=== PATIENT | male | born 1960 | race Caucasian/White ===

== ENCOUNTER → 2017-07-05 | Outpatient (CLI) | payer BC ==
--- NOTE | 2017-07-05 08:50 | MR ---
EXAMINATION TYPE: MR iac wo/w con DATE OF EXAM: 07/05/2017 COMPARISON: NONE HISTORY: Left-sided Acoustic nerve / Tinnitus / left-sided hearing loss per order. Blunting sensatio n left ear per patient. TECHNIQUE: Multiplanar, multisequence images of the brain and brainstem is performed without and with IV contras t, utilizing 12.5 mL intravenous Gadavist . Acoustic nerve disorder protocol. FINDINGS: Diffusion weighted images demonstrate no evidence of a recent infarct or other diffusion ab normality. There is no extra-axial fluid collection or significant white matter signal abnormality. Less than 5 scattered T2 hyperintense lesions are felt present. The ventricular system and cisternal spaces are normal in size and appearance. The brain volume is age appropriate. Midline structures demonstrate normal morphology. The craniocervical junction appears within normal limits. Post contrast images demonstrate no abnormal enhancement. There is moderate mucosal thickeni ng involving ethmoid sinuses bilaterally. There is mild to moderate mucosal thickening involving infe rior right maxillary sinus. There is moderate mucosal thickening involving right frontal sinus. Globe s are intact bilaterally. No suspicious fluid signal is seen at level of mastoid air cells bilaterally. Vestibulocochlear compl exes are symmetric and felt within normal limits. No suspicious enhancing cerebellopontine angle mass is identified bilaterally. IMPRESSION: No significant finding is seen to account for patient's symptoms. Chronic paranasal sinus disease incidentally noted.
== END ==
LOC: RADMRIMAIN 07:51
PROVIDERS: ATTEND Otolaryngology
DX: H93.3X9 Disorders of unspecified acoustic nerve (principal); H93.19 Tinnitus, unspecified ear; H91.90 Unspecified hearing loss, unspecified ear; J32.9 Chronic sinusitis, unspecified
CPT/HCPCS: 70553; A9581

== ENCOUNTER 2018-11-01 17:52 | Inpatient (IN) | payer BC ==
[2018-11-01] MEDS ORDERED: SODIUM CHLORIDE 0.9% 500 ML 500 ML IV STA (18:19)
--- NOTE | 2018-11-01 18:38 | ED ---
General Adult HPI - General Chief complaint: Neuro Symptoms/Deficit Stated complaint: Eye droop Time Seen by Provider: 11/01/18 18:00 Source: patient, RN notes reviewed Mode of arrival: ambulatory Limitations: no limitations - History of Present Illness Initial comments: This is a 58-year-old male who presents emergency Department with at least a month worth of proptosis in the left eye patient states prior to the proptosis he was having intermittent double vision over the last month as well. Patient states he went to see his primary medical care doctor and he ordered a MRI and go follow-up the service mechanic. [employer] wanted to come emergency department and be worked up. Patient has no headache patient has no other neurologic deficits such as facial droop or slurred speech. Patient denies any numbness weakness. Patient denies any recent fever or chills. Patient denies any chest pain difficulty breathing shortest breath per patient denies any abdominal pain patient denies nausea vomiting diarrhea. - Related Data Home Medications Medication Instructions Recorded Confirmed Benazepril HCl 10 mg PO DAILY 11/01/18 11/01/18 Cholecalciferol [Vitamin D3 (25 1,000 unit PO DAILY 11/01/18 11/01/18 Mcg = 1000 Iu)] amLODIPine BESYLATE [Norvasc] 10 mg PO DAILY 11/01/18 11/01/18 Allergies Allergy/AdvReac Type Severity Reaction Status Date / Time No Known Allergies Allergy Verified 11/01/18 18:10 Review of Systems ROS Statement: Those systems with pertinent positive or pertinent negative responses have been documented in the HPI. ROS Other: All systems not noted in ROS Statement are negative. Past Medical History Past Medical History: Hypertension History of Any Multi-Drug Resistant Organisms: None Reported Additional Past Surgical History / Comment(s): basal cwll removal, sinus Past Psychological History: No Psychological Hx Reported Smoking Status: Never smoker Past Alcohol Use History: None Reported Past Drug Use History: None Reported General Exam - General Exam Comments Initial Comments: GENERAL: Patient is well-developed and well-nourished. Patient is nontoxic and well- hydrated and is in no acute distress. ENT: Neck is soft and supple. No significant lymphadenopathy is noted. Oropharynx is clear. Moist mucous membranes. Neck has full range of motion without eliciting any pain. EYES: The sclera were anicteric and conjunctiva were pink and moist. Chest proptosis of the left eye. Patient does seem to have a little delay in extraocular motion in particular looking medially in the left eye compared to the right. PULMONARY: Unlabored respirations. Good breath sounds bilaterally. No audible rales rhonchi or wheezing was noted. CARDIOVASCULAR: There is a regular rate and rhythm without any murmurs gallops or rubs. ABDOMEN: Soft and nontender with normal bowel sounds. SKIN: Skin is clear with no lesions or rashes and otherwise unremarkable. NEUROLOGIC: Patient is alert and oriented x3. Cranial nerves II through XII are grossly intact. Motor and sensory are also intact. Normal speech, volume and content. Symmetrical smile. MUSCULOSKELETAL: Normal extremities with adequate strength and full range of motion. No lower extremity swelling or edema. No calf tenderness. LYMPHATICS: No significant lymphadenopathy is noted PSYCHIATRIC: Normal psychiatric evaluation. Normal interpersonal interactions appears functionally intact in deals appropriately with others. No signs of depression. No signs of anxiety. Limitations: no limitations Course Vital Signs 11/01/18 11/01/18 11/01/18 17:59 18:28 19:48 Temperature 98.2 F Pulse Rate 98 93 75 Respiratory 18 18 16 Rate Blood Pressure 146/90 140/81 132/84 O2 Sat by Pulse 96 96 94 L Oximetry Medical Decision Making - Medical Decision Making EKG shows normal sinus rhythm at 97 bpm IN interval is 160 QRS is 96 QT interval 354 QTC is 449 per patient's EKG shows no ST segment elevation or depression no T-wave abnormalities noted. Patient has Q waves in leads II, III, and F aVF. Chest x-ray shows no acute abnormality. CT of the brain shows no acute abnormality. CT angiogram of the head and neck shows no acute abnormality. Patient continues to have proptosis of the left eye. I spoke with Dr. Loza and he agreed to admit the patient admitted the patient I wrote admitting orders I consult the neurology. - Lab Data Result diagrams: 11/01/18 18:43 11/01/18 18:43 Lab Results 11/01/18 11/01/18 11/01/18 Range/Units 18:43 18:43 18:43 WBC 7.4 (3.8-10.6) k/uL RBC 5.11 (4.30-5.90) m/uL Hgb 15.4 (13.0-17.5) gm/dL Hct 45.9 (39.0-53.0) % MCV 89.8 (80.0-100.0) fL MCH 30.1 (25.0-35.0) pg MCHC 33.5 (31.0-37.0) g/dL RDW 13.4 (11.5-15.5) % Plt Count 184 (150-450) k/uL Neutrophils % 75 % Lymphocytes % 16 % Monocytes % 5 % Eosinophils % 3 % Basophils % 0 % Neutrophils # 5.5 (1.3-7.7) k/uL Lymphocytes # 1.1 (1.0-4.8) k/uL Monocytes # 0.3 (0-1.0) k/uL Eosinophils # 0.2 (0-0.7) k/uL Basophils # 0.0 (0-0.2) k/uL PT 12.0 (9.0-12.0) sec INR 1.1 (<1.2) APTT 28.0 (22.0-30.0) sec Sodium 139 (137-145) mmol/L Potassium 3.9 (3.5-5.1) mmol/L Chloride 106 (98-107) mmol/L Carbon Dioxide 26 (22-30) mmol/L Anion Gap 7 mmol/L BUN 18 (9-20) mg/dL Creatinine 0.69 (0.66-1.25) mg/dL Est GFR (CKD-EPI)AfAm >90 (>60 ml/min/1.73 sqM) Est GFR (CKD-EPI)NonAf >90 (>60 ml/min/1.73 sqM) Glucose 153 H (74-99) mg/dL Calcium 9.1 (8.4-10.2) mg/dL Total Bilirubin 0.9 (0.2-1.3) mg/dL AST 24 (17-59) U/L ALT 27 (21-72) U/L Alkaline Phosphatase 64 (38-126) U/L Troponin I (0.000-0.034) ng/mL Total Protein 7.1 (6.3-8.2) g/dL Albumin 4.0 (3.5-5.0) g/dL 11/01/18 Range/Units 18:43 WBC (3.8-10.6) k/uL RBC (4.30-5.90) m/uL Hgb (13.0-17.5) gm/dL Hct (39.0-53.0) % MCV (80.0-100.0) fL MCH (25.0-35.0) pg MCHC (31.0-37.0) g/dL RDW (11.5-15.5) % Plt Count (150-450) k/uL Neutrophils % % Lymphocytes % % Monocytes % % Eosinophils % % Basophils % % Neutrophils # (1.3-7.7) k/uL Lymphocytes # (1.0-4.8) k/uL Monocytes # (0-1.0) k/uL Eosinophils # (0-0.7) k/uL Basophils # (0-0.2) k/uL PT (9.0-12.0) sec INR (<1.2) APTT (22.0-30.0) sec Sodium (137-145) mmol/L Potassium (3.5-5.1) mmol/L Chloride (98-107) mmol/L Carbon Dioxide (22-30) mmol/L Anion Gap mmol/L BUN (9-20) mg/dL Creatinine (0.66-1.25) mg/dL Est GFR (CKD-EPI)AfAm (>60 ml/min/1.73 sqM) Est GFR (CKD-EPI)NonAf (>60 ml/min/1.73 sqM) Glucose (74-99) mg/dL Calcium (8.4-10.2) mg/dL Total Bilirubin (0.2-1.3) mg/dL AST (17-59) U/L ALT (21-72) U/L Alkaline Phosphatase (38-126) U/L Troponin I <0.012 (0.000-0.034) ng/mL Total Protein (6.3-8.2) g/dL Albumin (3.5-5.0) g/dL Disposition Clinical Impression: Cerebrovascular accident Disposition: ADMITTED IP TO THIS HOSP Referrals: Gaurav Hassan MD [Primary Care Provider] - 1-2 days Time of Disposition: 20:45
[2018-11-01 18:56] LABS: Basophils % (A) 0 %; Eosinophils # (A) 0.2 k/uL (0-0.7); Eosinophils % (A) 3 %; HCT 45.9 % (39.0-53.0); HGB 15.4 gm/dL (13.0-17.5); Lymphocytes # (A) 1.1 k/uL (1.0-4.8); Lymphocytes % (A) 16 %; MCH 30.1 pg (25.0-35.0); MCHC 33.5 g/dL (31.0-37.0); MCV 89.8 fL (80.0-100.0); Mean Platelet Volume 7.2; Monocytes # (A) 0.3 k/uL (0-1.0); Monocytes % (A) 5 %; Neutrophils # (A) 5.5 k/uL (1.3-7.7); Neutrophils % (A) 75 %; Platelet Count 184 k/uL (150-450); RBC 5.11 m/uL (4.30-5.90); RDW 13.4 % (11.5-15.5); WBC 7.4 k/uL (3.8-10.6)
[2018-11-01 19:14] LABS: ALT 27 U/L (21-72); AST 24 U/L (17-59); African American GFR (CKD) >90 (>60 ml/min/1.73 sqM); Alkaline Phosphatase 64 U/L (38-126); Anion Gap 7 mmol/L; Blood Urea Nitrogen 18 mg/dL (9-20); Calcium 9.1 mg/dL (8.4-10.2); Carbon Dioxide 26 mmol/L (22-30); Chloride 106 mmol/L (98-107); Glucose 153 mg/dL (74-99); Non-African American GFR(CKD) >90 (>60 ml/min/1.73 sqM); Potassium 3.9 mmol/L (3.5-5.1); Sodium 139 mmol/L (137-145); Total Bilirubin 0.9 mg/dL (0.2-1.3); Total Protein 7.1 g/dL (6.3-8.2)
[2018-11-01 19:17] LABS: INR 1.1 (<1.2)
--- NOTE | 2018-11-01 20:01 | CT ---
EXAMINATION: CT brain wo con DATE AND TIME: 11/01/2018 7:40 PM CLINICAL INDICATION: PHH; Neuro Deficits TECHNIQUE: Standard departmental protocol.; 1134; DLP 1134 mGy-cm. COMPARISON: None. FINDINGS: The calvarium is intact. There is no intracranial hemorrhage. There is no intracranial mass or mass effect. No definite new intra-axial or extra-axial attenuation defect. The ethmoid sinuses are prominently opacified, which can correlate with a clinical diagnosis of ethmo id sinusitis. The remainder of the paranasal sinuses, middle ear cavities, and mastoid sinus air cells are clear. The orbits are unremarkable. IMPRESSION: 1. NO ACUTE PROCESS. 2. Ethmoid sinus opacification.
--- NOTE | 2018-11-01 20:24 | XR ---
EXAMINATION: XR chest 2V DATE AND TIME: 11/01/2018 7:42 PM CLINICAL INDICATION: PHH; altered mental status TECHNIQUE: Departmental protocol COMPARISON: None FINDINGS: The lungs are clear. The pleural spaces are negative. The cardiac silhouette is mildly enlarged. The remainder of the mediastinal silhouette is unremarkable. The skeletal structures and soft tissues are negative for acute findings. IMPRESSION: NO ACUTE PROCESS.
--- NOTE | 2018-11-01 20:41 | CT ---
EXAMINATION TYPE: CT angio head neck DATE OF EXAM: 11/01/2018 HISTORY: Left eye droop and vision changes. COMPARISON: CT head without contrast 11/01/2018 CT DLP: 797.8 mGycm. Automated Exposure Control for Dose Reduction was Utilized. TECHNIQUE: CTA scan of the neck is performed with IV Contrast, patient injected with 50ml mL of Isov ue 370, axial images are obtained, coronal and sagittal reformatted images are reviewed. Three-D joaquin nstructed images are created on an independent workstation and reviewed. FINDINGS: The bilateral carotid arterial systems are widely patent without significant stenoses. Ther e is mild/moderate tortuosity with scattered atherosclerotic intimal calcifications bilaterally. The bilateral vertebral arterial systems are widely patent without significant stenoses. There is mil d/moderate tortuosity with scattered atherosclerotic intimal calcifications bilaterally. Intracranial anterior and posterior arterial circulation is widely patent. The dural venous sinuses and venous structures of the neck are widely patent. There are no incidental intracranial or soft tissue neck findings. IMPRESSION: No significant abnormality is seen.
[2018-11-01 22:22] VITALS: BMI 39.0
--- NOTE | 2018-11-01 22:34 | P.CNNES ---
History of Present Illness Consult date: 11/01/18 Requesting physician: Jose Sam Reason for Consult: CVA Chief complaint: Double vision and droopy left eyelid History of Present Illness: This is a 58 RH male whose main vascular risk factor is HTN and advancing age. Over the past year, he has been having intermittent double vision. Images are at an angle up and downward. Then around a month ago, his left eyelid started to droop. He went to his PCP who was going to arrange for him to have an MRI brain w wo judy, but it has not yet been done. He went to see an glacing machine tender who stated while he could fit the patient for prisms, he should go see an copy supervisor, and he did today. He was advised to present to the ER for immed iate work-up. Denies recent head trauma (he did hit his head around a year ago that left him with a buzz inside his head, which eventually resolved spontaneously) or SAW CLE[employer]ER infection. No h/o DM, toxin exposure or sick contacts. Denies other neuro c/o such as decreased level or loss of consciousness, ph otopsias, periorbital or retrobulbar pain, headache, transient left visual loss or graying of vision, amaurosis, forehead or facial numbness or droop, vertigo, dysarthria, dysphagia, aphasia, other focal numbness/weakness not mentioned above, tremors, bowel/bladder incontinence or ataxia. Review of Systems I have performed a 14-point organ ROS with patient; pertinents are as per HPI. Past Medical History Past Medical History: Hypertension History of Any Multi-Drug Resistant Organisms: None Reported Additional Past Surgical History / Comment(s): basal cwll removal, sinus Past Psychological History: No Psychological Hx Reported Smoking Status: Never smoker Past Alcohol Use History: None Reported Past Drug Use History: None Reported Medications and Allergies Home Medications Medication Instructions Recorded Confirmed Type Benazepril HCl 10 mg PO DAILY 11/01/18 11/01/18 History Cholecalciferol [Vitamin D3 (25 1,000 unit PO DAILY 11/01/18 11/01/18 History Mcg = 1000 Iu)] amLODIPine BESYLATE [Norvasc] 10 mg PO DAILY 11/01/18 11/01/18 History Allergies Allergy/AdvReac Type Severity Reaction Status Date / Time No Known Allergies Allergy Verified 11/01/18 18:10 Physical Examination - Vital Signs Vital Signs: Vital Signs Temp Pulse Resp BP Pulse Ox 11/01/18 21:13 98.6 F 84 16 137/84 97 11/01/18 19:48 75 16 132/84 94 L 11/01/18 18:28 93 18 140/81 96 11/01/18 17:59 98.2 F 98 18 146/90 96 Intake and Output 11/01/18 11/01/18 11/01/18 06:59 14:59 22:59 Other: Weight 127.006 kg Gen NAD Pleasant and cooperative HEENT NCAT Sclera without icterus O/P clear Neck Supple No carotid bruit Cor RRR no m/r/g Lungs CTAB Abd Soft NTND +BS Ext Warm to touch No edema Neuro MS A+Ox4 Normal fluency Able to follow all commands CN PERRL VFF no APD EOMI but he has vertical diplopia on downward gaze no nystagmus or CHAVEZ No facial asymmetry except he does have left ptosis There is no fatigable ptosis on the right on sustained upward gaze x 30 seconds Masseter's symmetric Hearing intact to normal voice bilaterally Speech not dysarthric Equal elevation of palate Tongue midline Sym shrug and SCM bilaterally Motor Normal bulk/tone No pronator or leg drift No tremors Strength 5/5 sym throughout Sens Intact to LT x4 No neglect or extinction Coord No dysmetria on FTN bilaterally DTRs 2+/4 sym throughout Toes downgoing bilaterally No clonus at achilles Gait Deferred NIHSS 0 Results - Laboratory Findings CBC and BMP: 11/01/18 18:43 11/01/18 18:43 Abnormal Lab Findings: Abnormal Labs 11/01/18 18:43 Glucose 153 H - Diagnostic Findings Additional findings: CT Head wo cont 11/01/18. Ethmoid sinus opacification. Orbits are unremarkable. No ICH. Nil acute. CTA Head/Neck 11/01/18. No LVO or stenosis. No cerebral aneurysm such as pComm aneurysm. I have reviewed neuroimages myself. Assessment and Plan Assessment: Pupillary sparing left CNIII palsy Plan: -CTA did not show compressive vascular pathology such as pcomm aneurysm. A compressive etiology would typically cause pupillary involving CNIII palsy, which is not his case -Will start with MRI Brain w wo judy to r/o parenchymal structural explanation such as CVA or neoplasm -If negative, will need to look for other intrinsic etiologies of his cranial neuropathy -Send basic PN labs, i.e. TSH, hga1c, B12. May need to expand if neuroimaging unrevealing -Fasting lipids in am -May treat BP to normotensive range but avoid hypotension -DVT prophylaxis -Clinical neuroanatomy, localization, differential considerations and work-up d/w patient at length. All questions answered. Thank you for this consultation. Please call with ?. Time with Patient: Greater than 30 (Time spent in direct patient care, greater than 50% of which was spent in [id number] counseling and coordination of care: 70 minutes)
[2018-11-02 08:29] VITALS: RESP 16
--- NOTE | 2018-11-02 14:21 | XR ---
Pre-MRI orbits HISTORY: Pre-MRI 3 views of the orbits Sclerosis overlying the left frontal sinus may represent osteoma. The orbits show no radiopaque forei gn body. Paranasal sinuses otherwise appear well aerated. IMPRESSION: No radiopaque foreign body evident within the orbits.
--- NOTE | 2018-11-02 15:26 | MR ---
EXAMINATION TYPE: MR brain wo/w mraneck wo/wcon DATE OF EXAM: 11/02/2018 2:58 PM COMPARISON: NONE HISTORY: Ptosis, OS, Left pupillary sparing CNIII palsy CONTRAST: Patient received 13 mL intravenous Gadavist gadolinium contrast. Multiplanar and multispin-echo imaging of the brain was performed . Pre and post contrast enhanced i mages are obtained. The ventricles, basal cisterns and sulci overlying the cerebral convexities are mildly enlarged. There is evidence of minimal periventricular white matter ischemic demyelination. Remote deep white matter insults are also noted. No acute edema is seen on diffusion weighted imaging. There is no evidence for midline shift or mass effect. Acute intracranial hemorrhage or extra-axial collection is not evident. No enhancing lesions are seen. Chronic paranasal sinusitis. IMPRESSION: Age-related atrophic and chronic small vessel ischemic change. No acute intracranial process at this time. No enhancing lesions are seen. EXAMINATION TYPE: MR brain wo/w mraneck wo/wcon DATE OF EXAM: 11/02/2018 2:58 PM COMPARISON: NONE Contrast: 13 mL Gadavist. HISTORY: Ptosis, OS, Left pupillary sparing CNIII palsy Three-dimensional [id number] cervical carotid MRA was performed with multiple intensity projectio n images submitted and source data reviewed at the workstation. Post contrast enhanced images are ob tained. Right carotid system: There is mild plaque seen about the common carotid artery. Mild plaque is also seen at the origin and proximal aspect of the right internal carotid artery. Stenosis is estimated at less than 50%. No hemodynamically significant stenosis is appreciated. Right external carotid ar adrian right vertebral artery are patent. Left carotid system: Mild plaque involving the left common carotid artery. Minimal to mild plaque or igin left ICA. No hemodynamically significant stenosis is appreciated. External carotid artery and the left vertebral artery are patent. IMPRESSION: 1. No hemodynamically significant stenosis is appreciated at this time.
[2018-11-02 15:34] VITALS: BP 153/93; TEMP 98
[2018-11-02 15:38] LABS: Hemoglobin A1C 5.2 % (4.0-6.0)
[2018-11-02 16:18] VITALS: PULSE 73
--- NOTE | 2018-11-02 16:45 | P.PN ---
Subjective Progress Note Date: 11/02/18 Principal diagnosis: Pupillary sparing left CNIII palsy MRI Brain. MRA Neck. Left ptosis and diplopia unchanged. No other neuro c/o. Objective - Vital Signs Vital signs: Vital Signs Temp 98 F 11/02/18 15:27 Pulse 73 11/02/18 16:10 Resp 16 11/02/18 16:10 BP 153/93 11/02/18 15:27 Pulse Ox 96 11/02/18 15:27 Intake & Output 11/01/18 11/02/18 11/02/18 18:59 06:59 18:59 Intake Total 480 Output Total 600 Balance -120 Weight 127.006 kg 127.1 kg Intake: Oral 480 Output: Urine 600 Other: Voiding Method Toilet Toilet # Voids 1 - Exam Gen NAD Pleasant and cooperative MS A+Ox4 Normal speech CN Left ptosis and vertical diplopia on downgaze o/w remainder of II-XII grossly intact no nystagmus Motor Normal bulk/tone no tremors MENDOZA x4 Sens Intact to LT x4 Coord Not tested DTRs 2+/4 sym throughout Gait Deferred - Labs CBC & Chem 7: 11/01/18 18:43 11/01/18 18:43 Labs: Abnormal Lab Results - Last 24 Hours (Table) 11/01/18 11/02/18 Range/Units 18:43 06:02 Glucose 153 H (74-99) mg/dL LDL Cholesterol, Calc 131 H (0-99) mg/dL HDL Cholesterol 35 L (40-60) mg/dL TSH 3.0 hga1c 5.2 Vitamin B12 269 Assessment and Plan Assessment: Pupillary sparing left CNIII palsy Plan: -MRI results d/w patient in detail. No parenchymal or vascular explanation -Initiate labs for intrinsic etiologies of his cranial neuropathy. Will send MMA, homocysteine (given B12 <400), CK, LDH, ESR, CRP, SERGEY, RF, RPR, SPEP, AchR bining Ab, muscle specific kinase Ab -Basic PN labs (TSH, hga1c, B12) unrevealing -He will need to follow up with outpatient neurology to go over results and determine if further neuro work-up may be necessary -d/w patient in detail. All questions answered -Fine for discharge from acute neuro standpoint. Will revisit patient prn. Pl ease call with new ?. Thank you again for this consultation. Time with Patient: Less than 30 (Time spent in direct patient care, greater than 50% of which was spent in [id number] counseling and coordination of care: 25 minutes)
--- NOTE | 2018-11-02 17:33 | PN ---
PROGRESS NOTE CHIEF COMPLAINT: Ptosis of the left eye. HISTORY OF PRESENT ILLNESS: This gentleman is about the same as when he came in last night. It is interesting that when you first walk in the room, his ptosis is not noticeable. After he has been sitting up and talking for a few minutes, it returns. PHYSICAL EXAMINATION: He still has ptosis, but extraocular movements seem to be nearly concentric. Chest is clear. Cardiac exam is normal. Carotids are normal. IMPRESSION: 1. Ptosis of the left eye with diplopia. 2. Hypertension. PLAN: Await further neurologic evaluation and reports on contrast studies. MMODL / IJN: [id number] /
--- NOTE | 2018-11-02 17:39 | HP ---
HISTORY AND PHYSICAL CHIEF COMPLAINT: Double vision and ptosis. HISTORY OF PRESENT ILLNESS: This is another admission for this 58-year-old white male who has a history of hypertension. He came to the office with a several-day history of drooping of the left upper eyelid and diplopia. He denied any headaches, numbness, weakness, etc. anywhere in the head, face or neck. He had no sensory motor deficits in the upper extremities. He was noted to have a normal exam in the office. Pupils were equal and round and extraocular movements seemed to be intact. He could not elevate the left eyelid well, however. He was referred to Ophthalmology, and they suggested that he be admitted for neurology evaluation and appropriate scans. He is not diabetic. The vision of the left eye is well preserved and is normal. REVIEW OF SYSTEMS: He has had no other neurologic problems, chest pain, shortness of breath, palpitations, murmurs, rheumatic fever, dizziness, syncope, ataxia, etc. He has had no abdominal pain, nausea, vomiting, hematemesis, melena, hematochezia, colitis, diverticulosis, diverticulitis, hemorrhoids, jaundice, hepatitis, diarrhea, renal failure, dysuria, frequency, urgency, etc. Past medical history, family history, and personal and social histories are otherwise unremarkable and noncontributory. He basically is followed for hypertension. PHYSICAL EXAMINATION: Blood pressure is 135/80 with a pulse of 74, respirations of 29, and he is afebrile. In general he appeared to be overweight and in no acute distress. Skin color was normal. Skin was warm and dry. Lymph nodes were not enlarged. Head, ears, eyes, nose, mouth and throat were normal. Neck veins were not distended. Thyroid was not enlarged. Chest was clear. Cardiac exam was normal. The abdomen was soft and non-tender. The only abnormality was ptosis on the left. Pupils were equally round and gaze seemed to be conjugate. He is admitted to the hospital with the diagnosis: Unexplained diplopia and left-sided ptosis. PLAN: 1. Bed rest. 2. IV fluids. 3. Frequent monitoring of his neurologic status and vital signs. 4. Neurology consult. 5. MRA and MRI of the neck and intracranial circulation. MMODL / IJN: [id number] /
[2018-11-02 18:51] LABS: C Reactive Protein 9.8 mg/L (<10.0)
--- NOTE | 2018-11-02 20:18 | DS ---
DISCHARGE SUMMARY CHIEF COMPLAINT: Diplopia and ptosis of the left eye. HISTORY OF PRESENT ILLNESS AND PHYSICAL EXAMINATION: Details of this man's history and physical can be found in the initial workup. LABORATORY STUDIES: While he was in the hospital he had laboratory studies, details of which can be found in the laboratory section of his chart. COURSE IN THE HOSPITAL: After admission he was placed on bedrest and started on intravenous fluids and was seen by Neurology. He was evaluated for possible neoplasm, aneurysm, etc. All of his contrast studies were negative. He was seen by Neurology. The possibility of myasthenia gravis was brought up. It was felt that the patient could be discharged and his workup continued as an outpatient. He will go home on his usual activity, diet and medication and be seen in the office in a day or two. He will have a followup with Neurology. FINAL DIAGNOSES: 1. Diplopia, less. 2. Ptosis, left eye. 3. Hypertension. OPERATIONS: None. CONSULTATION: Neurology. He is improved. MMODL / IJN: [id number] /
[2018-11-03 00:31] LABS: Protein, Total 6.8 g/dL (6.2-8.2)
[2018-11-03 01:20] LABS: Rheumatoid Factor <4 IU/mL (0-13)
[2018-11-03] MEDS ORDERED: LISINOPRIL 10 MG TAB PO SCH (09:00)
[2018-11-03] MEDS ORDERED: amLODIPine 10 MG TAB PO SCH (09:00)
[2018-11-03 09:40] LABS: Albumin 3.99 g/dL (3.80-4.90); Gamma Globulin 1.09 g/dL (0.70-1.50)
[2018-11-07 09:41] LABS: Methylmalonic Acid 0.29 umol/L (<0.40)
== END 2018-11-02 18:37 | disposition home or self-care (01) | DRG 123 ==
LOC: EC 17:52 → 3SCARD 20:45
PROVIDERS: ADMIT Family Medicine; ATTEND Family Medicine
DX: H49.02 Third [oculomotor] nerve palsy, left eye (principal); H02.402 Unspecified ptosis of left eyelid; H53.2 Diplopia; I10 Essential (primary) hypertension; Z79.899 Other long term (current) drug therapy
CPT/HCPCS: 36415; 70030; 70450; 70496; 70498; 70549; 70553; 71046; 80053; 80061; 82550; 82607; 83036; 83090; 83519; 83625; 83921; 84165; 84443; 84484; 85025; 85610; 85652; 85730; 86038; 86140; 86431; 86780; 93005; 96360; 99285

== ENCOUNTER → 2018-11-18 | Outpatient (CLI) | payer BC | END | disposition home or self-care (01) | LOC: LABWHC1 15:22 | PROVIDERS: ATTEND Psychiatry & Neurology Neurology | DX: H53.2 Diplopia (principal) | CPT/HCPCS: 36415 ==

== ENCOUNTER → 2018-12-01 | Outpatient (CLI) | payer BC ==
--- NOTE | 2018-12-01 13:09 | MR ---
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 Th ree-dimensional reconstructions performed on an alternate workstation. FINDINGS: Anterior posterior circulation are patent. There is no evident aneurysm, dissection, embolu s, no vascular malformation. Inflammatory change noted incidentally within the ethmoid air cells and sphenoid sinus, frontal sinus. IMPRESSION: No abnormality of the tang[place] of [place]. Sinus disease as described.
== END | disposition home or self-care (01) ==
LOC: RADMRIMAIN 08:23
PROVIDERS: ATTEND Psychiatry & Neurology Neurology
DX: H49.02 Third [oculomotor] nerve palsy, left eye (principal)
CPT/HCPCS: 70544

== ENCOUNTER → 2018-12-08 | Outpatient (CLI) | payer BC ==
--- NOTE | 2018-12-08 09:59 | CT ---
EXAMINATION TYPE: CT chest wo/w con DATE OF EXAM: 12/08/2018 COMPARISON: None HISTORY: myasthenia gravis CT DLP: 1236.4 mGycm, Automated exposure control for dose reduction was used. CONTRAST: Performed injected with 100 mL of Isovue 300. TECHNIQUE: Axial images were obtained at 5 mm thick sections. Reconstructed images are reviewed on [employer] computer in the coronal plane. FINDINGS: Portion of the thyroid visualized is normal. No suspicious lung nodules or focal infiltrates are present. No suspicious anterior mediastinal elroy s are evident. No enlarged mediastinal or hilar adenopathy is evident. The ascending aorta diameter at the level o f the main pulmonary artery is 3.5 cm. The main pulmonary artery diameter at the bifurcation is 2.9 cm. Coronary artery calcification is noted. Limited CT sections are obtained through the upper abdomen. Abdomen is essentially unremarkable. IMPRESSIONS: 1. Normal Chest CT.
== END | disposition home or self-care (01) ==
LOC: RADCTMAIN 06:40
PROVIDERS: ATTEND Psychiatry & Neurology Neurology
DX: G70.00 Myasthenia gravis without (acute) exacerbation (principal)
CPT/HCPCS: 71270; Q9967

== ENCOUNTER → 2019-04-18 | Outpatient (CLI) | payer BC | END | disposition home or self-care (01) | LOC: LABWHC1 12:11 | PROVIDERS: ATTEND Psychiatry & Neurology Neurology | DX: G70.00 Myasthenia gravis without (acute) exacerbation (principal); Z79.899 Other long term (current) drug therapy | CPT/HCPCS: 36415; 82306 ==

== ENCOUNTER → 2019-04-28 | Outpatient (CLI) | payer BC ==
[2019-04-28 17:44] LABS: Hemoglobin A1C 5.6 % (4.0-6.0)
== END | disposition home or self-care (01) ==
LOC: LABWHC1 07:37
PROVIDERS: ATTEND Psychiatry & Neurology Neurology
DX: G62.9 Polyneuropathy, unspecified (principal); G70.00 Myasthenia gravis without (acute) exacerbation; R94.131 Abnormal electromyogram [EMG]; Z79.899 Other long term (current) drug therapy
CPT/HCPCS: 36415; 82607; 83036; 86618

== ENCOUNTER → 2020-02-15 | Outpatient (CLI) | payer BC ==
[2020-02-15 22:15] LABS: Hemoglobin A1C 5.1 % (4.0-6.0)
== END | disposition home or self-care (01) ==
LOC: LABWHC1 13:21
PROVIDERS: ATTEND Psychiatry & Neurology Neurology
DX: G70.00 Myasthenia gravis without (acute) exacerbation (principal); R26.0 Ataxic gait; Z79.899 Other long term (current) drug therapy
CPT/HCPCS: 36415; 82306; 82550; 82607; 83036

== ENCOUNTER → 2020-03-06 | Outpatient (CLI) | payer BC ==
--- NOTE | 2020-03-10 12:13 | MR ---
EXAMINATION TYPE: MR shruthiine/lspine wo/w con DATE OF EXAM: 03/06/2020 COMPARISON: CT 11/01/2018 HISTORY: Numbness in right index finger and pinky finger. Pain in right shoulder. Numbness in left le g. TECHNIQUE: Multiplanar, multisequence images of the cervical and lumbar spine is performed without and with IV c ontrast, utilizing 12.5 mL intravenous Gadavist FINDINGS: Cervical spine MRI: There is reversal of the normal cervical lordosis. Cervical vertebral bodies show preserved height. T here is loss of disc signal consistent with disc desiccation at intervertebral levels, loss of disc h eight present C4-5, C5-6, there is associated spondylosis with endplate discogenic marrow signal sanchez ge. Cervical cord shows abnormal intrinsic signal, low signal on T1, high signal on T2-weighted seque nces extending from approximately C4-5 through C6. There is an oval-shaped T1 and T2 isointense mass measuring approximately 17 mm in transverse dimension by 2.6 cm in cephalad to caudal dimension by 10 mm in AP dimension at the C6 level extending to C6-7. Dense homogenous enhancement is present followi ng contrast administration. There is mass effect on the cord from the right towards the left. Small o ssific fragment is present at the level of the dens which is an interval change, remote fracture is n ot excluded. C2-3 shows a minimal posterior disc bulge possibly contacting the anterior cervical cord. Mild left-s ided foraminal encroachment present due to some mild anterolisthesis, there is some facet arthropathy change. No evident spinal stenosis. C3-4: Posterior extension of endplate disc complex effaces the anterior thecal sac. There is foramina l encroachment due to uncovertebral joint hypertrophy and facet arthropathy left greater than right. No significant spinal stenosis. C4-5: Right-sided foraminal encroachment is extensive due to uncovertebral joint hypertrophy and face t arthropathy. Foraminal encroachment is less significant on the left. No significant spinal stenosis . C5-6: Severe spinal stenosis is present, as well as posterior extension of endplate disc complex caus ing deformity of the cervical cord. There is bilateral foraminal encroachment due to uncovertebral jw int hypertrophy. There is some associated facet arthropathy. C6-7: Spinal stenosis is contributed by the mass. There is bilateral foraminal encroachment due to un covertebral joint hypertrophy. There is associated facet arthropathy. C7-T1: No significant spinal stenosis. There is some right-sided foraminal encroachment greater than left. 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 Extensive degenerative disc disease as described, multilevel foraminal encroachment. Fragment at the level of the tip of the dens. Revers al cervical lordosis. Lumbar spine MRI: Lumbar vertebral bodies show preserved height and alignment. There is multilevel spondylosis, endplat e discogenic marrow signal change. Vacuum phenomenon present at intervertebral disc levels, there is associated loss of disc height signal. The conus is at T12 and shows an unremarkable appearance. L5-S1: There is facet arthropathy change present with some encroachment on the lateral recesses. Post erior extension endplate disc complex extends bilaterally, there is anterolateral mass effect on the thecal sac eccentric towards the right, bilateral foraminal encroachment. L4-5: Facet arthropathy with hypertrophy ligamentum flavum causes posterior lateral mass effect on th e thecal sac. Posterior extension of endplate disc complex causes anterior mass effect on the thecal sac is a trefoil appearance of the thecal sac, some encroachment on the lateral recesses The left. Circumferential extension endplate disc complex results in bilateral foraminal encroachment . L3-4: There is severe spinal stenosis present. Circumferential extension endplate disc complex result s in bilateral foraminal encroachment. Posterior extension endplate disc complex causes anterior mass effect on the thecal sac, trefoil appearance of the thecal sac. Posterior central disc herniation be tter seen on axial postcontrast image #15 causes anterior mass effect centrally on the thecal sac L2-3: Posterior broad-based disc bulge causes mild anterior mass effect on the thecal sac. There is s ome facet arthropathy change. No evident foraminal encroachment or significant spinal stenosis. L1-2: Posterior broad-based disc bulge causes mild anterior mass effect on the thecal sac. Facet arth ropathy with hypertrophy ligamentum flavum causes posterior lateral mass effect on the thecal sac, tr efoil appearance of the thecal sac. There is no abnormal enhancement following contrast administration. Impression: Multilevel degenerative disc disease, spinal stenosis, foraminal encroachment. Facet arth ropathy.
== END | disposition home or self-care (01) ==
LOC: RADMRIMAIN 19:36
PROVIDERS: ATTEND Psychiatry & Neurology Neurology
DX: M48.061 Spinal stenosis, lumbar region without neurogenic claudication (principal); M50.10 Cervical disc disorder with radiculopathy, unspecified cervical region; M51.16 Intervertebral disc disorders with radiculopathy, lumbar region; M47.812 Spondylosis without myelopathy or radiculopathy, cervical region; G95.89 Other specified diseases of spinal cord; G70.00 Myasthenia gravis without (acute) exacerbation
CPT/HCPCS: 72156; 72158; A9585

== ENCOUNTER → 2020-06-28 | Outpatient (CLI) | payer BC ==
--- NOTE | 2020-06-28 10:56 | MR ---
EXAMINATION TYPE: MR cervical spine wo/w con DATE OF EXAM: 06/28/2020 COMPARISON: 03/06/2020 HISTORY: Prior on synapse, history csp fusion, follow up TECHNIQUE: Multiplanar, multisequence images of the cervical spine were acquired utilizing 12.5ml mL intravenous Gadavist gadolinium contrast. Diffusion weighted imaging was performed. C2-C3: There is central disc protrusion or herniation abutting the anterior margin the spinal cord. D egenerative disc disease noted. Surgical change involving the posterior elements noted. Uncovertebral joint hypertrophy results in mild bilateral foraminal encroachment. Cannot exclude a extruded disc f ragment posterior to the C3 vertebral body. C3-C4: Degenerative disc disease with broad-based disc herniation abutting the anterior margin the sp inal cord. This results in canal stenosis. Hypertrophic change of the facets are noted and there is b ilateral foraminal encroachment. Artifact of the posterior elements likely postsurgical. C4-C5: Virtually nondiagnostic due to artifact from postsurgical change. Suspect bilateral foraminal encroachment. Posterior spur bulging of disc suspected. C5-C6: Nondiagnostic in assessment due to severe artifact C6-C7: Nondiagnostic assessment due to severe C7-T1: Limited assessment due to artifact. No obvious disc herniation. Incidental note is made the ap proximate level of T1-T2 there may be a right paracentral disc protrusion with right-sided foraminal encroachment. There is extensive postsurgical changes appear to extend to the level of C2-T1 and should be correlat ed with surgical history confirmation. There appears to be severe artifact resulting in nearly nondia gnostic assessment spinal canal particularly on the postcontrast images. Evaluation of the spinal cor d is nondiagnostic and majority of the levels. Areas of abnormal signal on the prior exam within the spinal cord are difficult to evaluate due to severe metallic artifact. IMPRESSION: 1. Severely limited exam due to extensive metal artifact. Several sequences are limited due to the barney rgical site due to metallic artifact. Assessment spinal cord markedly limited at levels C4-T1. Areas of abnormal signal seen in the spinal cord on the prior exam are limited in assessment. Upper cervica l spinal cord demonstrates no definite abnormal signal. 2. Disc protrusion or herniation C2-3 and C3-C4 which abuts the anterior margin the spinal cord are s imilar appearance to the prior exam. Canal stenosis C3-C4 suspected. 3. Multilevel foraminal encroachment. 4. Suspect a right paracentral disc protrusion T1-T2 consider thoracic spine MRI as clinically warran francisco.
== END | disposition home or self-care (01) ==
LOC: RADMRIMAIN 08:34
PROVIDERS: ATTEND Neurological Surgery
DX: M50.11 Cervical disc disorder with radiculopathy, high cervical region (principal)
CPT/HCPCS: 72156; A9585

== ENCOUNTER → 2021-03-05 | Outpatient (CLI) | payer BC ==
--- NOTE | 2021-03-05 16:05 | MR ---
EXAMINATION TYPE: MR cervical spine wo/w con DATE OF EXAM: 03/05/2021 COMPARISON: MR cervical spine 06/28/2020 HISTORY: Cervical spondylosis TECHNIQUE: Multiplanar, multisequence images of the cervical spine were acquired without contrast and with 13 mL intravenous Gadavist gadolinium contrast. Diffusion weighted imaging was performed. C2-C3: There is a posterior disc protrusion causing anterior mass effect on the thecal sac.. No signi ficant foraminal encroachment.. No Canal stenosis. Foramina are patent bilaterally. C3-C4: No significant change. Some slight foraminal encroachment is present similar to prior exam due to uncovertebral joint hypertrophy. Posterior endplate, heart disc may contact the anterior cervical cord similar to prior exam. C4-C5: There is some right-sided foraminal encroachment present due to joint hypertrophy, no disc her niation C5-C6: Bilateral foraminal encroachment is present. No disc herniation, disc space is obscured, posto p change is present C6-C7: There is uncovertebral joint hypertrophy causing foraminal encroachment greater on the left si milar to prior exam, posterior extension of bony endplate changes and mild anterior mass effect on th e thecal sac. C7-T1: No evidence for degenerative disc disease. No disc bulge/herniation or protrusion. No Canal stenosis. Foramina are patent bilaterally. Cervical segments are somewhat obscured by patient's fusion changes at C5-C7, there is susceptibility artifact present. There is stable alignment. Cervical spinal cord is of normal signal within the l imitations of the exam. Craniovertebral junction relationships are within normal limits. There is n o significant spinal stenosis. No abnormal enhancement following contrast administration although the exam is markedly limited IMPRESSION: Findings are similar to prior exam. Postop changes. There is some multilevel foraminal encroachment. No evident recurrent disc herniation, stable degenerative disc changes C2-3, extensive artifact is pr esent, no significant canal stenosis
== END | disposition home or self-care (01) ==
LOC: RADMRIMAIN 07:19
PROVIDERS: ATTEND Neurological Surgery
DX: M47.12 Other spondylosis with myelopathy, cervical region (principal)
CPT/HCPCS: 72156; A9585

== ENCOUNTER → 2021-12-08 | Outpatient (CLI) | payer BC ==
--- NOTE | 2021-12-09 12:07 | MR ---
EXAMINATION TYPE: MR cervical spine wo/w con DATE OF EXAM: 12/08/2021 INDICATION: Patient age:Male; 61 years old; Reason for study: M47.12 OTHER SPONDYLOSIS WITH MYELOPATHY; F/U to tumor removal, no symptoms. COMPARISON: MRI C-spine 06/28/2020 03/03/2021. Presurgical MRI 03/06/2020. TECHNIQUE: Multi planar, multi sequence imaging was performed utilizing: T1-weighted, T2-weighted, an d turbo inversion recovery imaging of the cervical spine. T1 imaging was performed with and without I V contrast. IV Contrast: 13 cc Gadavist FINDINGS: Alignment: The cervical vertebral bodies have preserved heights. Postsurgical straightening of the sp ine. Bones: Fixation hardware throughout the cervical spine including anterior fixation at C5, C6 and C7 a nd posterior fixation at C2-T1. Susceptibility artifact at these levels limits evaluation. Multilevel degenerative disc disease is noted and most pronounced at the C5-C7 vertebral levels. Cord: The spinal cord is unremarkable with regards to their signal intensity and morphology. Postcont rast enhancement images no evidence of mass in area of prior mass on 03/06/2020. Discs: Discectomy changes at C5-C6 and C6-C7. C2-C3: Similar central disc protrusion or disc osteophyte complex which abuts the anterior spinal cor d. No neural foraminal stenosis. C3-C4: Similar central disc protrusion or disc osteophyte complex which abuts the anterior spinal cor d. Bilateral facet and uncovertebral joint arthropathy are present with mild bilateral neural foramin al stenosis. C4-C5: A disc osteophyte complex is present which minimally narrows the ventral subarachnoid space. Bilateral facet and uncovertebral joint arthropathy are present with mild bilateral neural foraminal stenosis. C5-C6: A osteophyte is present which minimally narrows the ventral subarachnoid space. Bilateral fa cet and uncovertebral joint arthropathy are present with moderate bilateral neural foraminal stenosis . C6-C7: A osteophyte is present which minimally narrows the ventral subarachnoid space. Bilateral fa cet and uncovertebral joint arthropathy are present with moderate bilateral neural foraminal stenosis . C7-T1: No significant disc pathology. The spinal canal is patent. Bilateral facet and uncovertebral joint arthropathy are present with mild bilateral neural foraminal stenosis. Other: Postsurgical changes in the subcutaneous tissues of the posterior neck. Limited evaluation thr oughout the spine due to susceptibility for fibrosis. No obvious fibrosis identified. IMPRESSION: 1. No evidence for significant spinal canal stenosis. Multilevel neural foraminal narrowing as descri bed above. No abnormal postcontrast enhancement. No recurrent tumor. [facility]. 2. Multilevel disc degeneration with associated osteoarthritic changes and post surgical changes.
== END | disposition home or self-care (01) ==
LOC: RADMRIMAIN 15:30
PROVIDERS: ATTEND Neurological Surgery
DX: M47.812 Spondylosis without myelopathy or radiculopathy, cervical region (principal); M47.12 Other spondylosis with myelopathy, cervical region
CPT/HCPCS: 72156; A9585

== ENCOUNTER → 2022-03-19 | Outpatient (CLI) | payer BC ==
--- NOTE | 2022-03-19 12:49 | CA ---
Exercise Stress Test Report Name: Juan Luis Emerson Exam Date: 03/19/2022 11:01 Exam Location: [facility] Ht (in): 71 Wt (lb): 280 BSA: 2.43 Ordering Phys: Gaurav Hassan MD Referring Phys: CHARMAINE, Technologist: Orlando Tomas Age: 61 Gender: M : 1960 Procedure CPT: Indications: R06.2 wheezing,R05.8,R06.02 ICD-10 Codes: Patient History: Short of breath and hypertension Medications: Meds past 24 hrs: Pretest Chest Pain: STRESS TEST Buster Protocol Exercise Duration (min:sec): 03:[address] Depressions (mm): Angina Score: Peacock Score: Resting HR (bpm): 68 Peak HR (bpm): 136 Resting BP (mmHg): 129 / 74 Peak BP (mmHg): 186 / 80 MPHR: 157 Target HR: 133 % MPHR: 87 METS: 5.6 Total Dose: Peak Dose: Atropine: Double Product: 30612 BP Response: Stress Termination: Fitgue Stress Symptoms: Dyspnea Stress Summary: ECG ANALYSIS Resting ECG: Stress ECG: CONCLUSIONS Patient underwent exercise stress EKG with a Buster protocol treadmill stress test. Patient exercised into Stage 2 for a total of 3 minutes and 40 seconds reaching a total of 5.6 METS. Patient's maximum heart rate was 136 which represented 86% age- predicted maximum heart rate. Stress EKG findings: At baseline patient's EKG showed normal sinus rhythm, normal axis, no significant ST or T wave abnormalities. At peak exercise, EKG showed no change from baseline. Conclusions: 1. Normal EKG response to exercise without evidence of inducible ischemia. 2. Poor exercise capacity. Dr. Mike Rasmussen DO (Electronically Signed) Final Date: 19 March 2022 12:48
== END | disposition home or self-care (01) ==
LOC: RADNMMAIN 10:37
PROVIDERS: ATTEND Family Medicine
DX: R06.2 Wheezing (principal); R06.02 Shortness of breath; R05.8 Other specified cough
CPT/HCPCS: 93017

== ENCOUNTER → 2023-03-23 | Outpatient (CLI) | payer BC ==
--- NOTE | 2023-03-26 12:29 | HM ---
HOLTER MONITOR REPORT This is a 24-hour Holter. INDICATIONS: Palpitations. FINDINGS: Underlying rhythm is sinus with an average heart rate of 66 beats per minute. Heart rate varied from 37 beats per minute to 122 beats per minute. There were episodes of sinus bradycardia and sinus tachycardia, occasional PVCs are noted. Rare PACs are noted. There were no episodes of sustained ventricular or supraventricular tachyarrhythmias. There were no episodes of more than 2-second pauses. CONCLUSION: This 24-hour Holter reveals sinus rhythm with episodes of sinus tachycardia and sinus bradycardia with occasional PVCs. MMODL / IJN: [id number] /
== END | disposition home or self-care (01) ==
LOC: RADECHMAIN 07:37
PROVIDERS: ATTEND Family Medicine
DX: I49.3 Ventricular premature depolarization (principal); R00.2 Palpitations; R00.0 Tachycardia, unspecified
CPT/HCPCS: 93225; 93226

== ENCOUNTER 2024-06-07 09:07 | Day surgery (SDC) | payer MEDICARE ==
[2024-06-02 12:50] VITALS: BMI 40.4
[~2024-06-07 09:07] MED LIST: HYDROmorphone 0.5 MG/0.5 ML SYRINGE IVP PRN; droPERidol 2.5 MG/ML VIAL IVP ONE
[2024-06-07] MEDS: OXYMETAZOLINE 0.05% NASL SPRAY 1 SPRAY BOTTLE EA NOSTRIL PRN (09:45)
[2024-06-07 09:47] VITALS: RESP 16; TEMP 98.4
[2024-06-07] MEDS: IV FLUID CONTINUATION 1,000 ML IV ONE (09:50)
[2024-06-07] MEDS: LIDOCAINE 1% (10MG/ML) FOR IV START INTRADERMA PRN (09:50)
[2024-06-07] MEDS: LACTATED RINGERS 1,000 ML IV SCH (09:50)
[2024-06-07] MEDS: DEXAMETHASONE SOD PHOSPHATE 4 MG/ML 1 ML VIAL IV ONE (09:56)
[2024-06-07] MEDS: FAMOTIDINE 20 MG/2 ML VIAL IV PRN (09:56)
[2024-06-07] MEDS: ONDANSETRON 4 MG/2 ML VIAL IVP ONE (09:56)
[2024-06-07] MEDS ORDERED: PROPOFOL 10 MG/ML 20 ML VIAL IV ONE (10:09)
[2024-06-07] MEDS ORDERED: SUCCINYLCHOLINE CHLORIDE 200 MG/10 ML VIAL IV ONE (10:09)
[2024-06-07] MEDS ORDERED: ePHEDrine 50 MG/ML 1 ML VIAL ONE (10:09)
[2024-06-07] MEDS ORDERED: PHENYLEPHRINE-0.9% NACL SYG 1,000 MCG/10 ML SYRINGE ONE (10:09)
[2024-06-07] MEDS ORDERED: LIDOCAINE 1% INJ 10MG/ML (20 ML MDV) ONE (10:09)
[2024-06-07] MEDS ORDERED: MIDAZOLAM 2 MG/2 ML VIAL ONE (10:09)
[2024-06-07] MEDS ORDERED: GLYCOPYRROLATE 0.2 MG/ML 2 ML VIAL ONE (10:09)
[2024-06-07] MEDS: ceFAZolin 3 GM in SODIUM CHLORIDE 0.9% 100 ML IVPB PRN (10:14)
[2024-06-07] MEDS: LIDOCAINE 1%-EPI 1:100,000 20 ML VIAL SUBMUCOSAL ONE (10:28)
[2024-06-07] MEDS: BACITRACIN ZINC 500 UNIT/GM OINT 28.4 GM TUBE TOPICAL ONE (10:28)
--- NOTE | 2024-06-07 11:04 | P.OP ---
Date of Procedure: 06/07/24 Preoperative Diagnosis: inferior turbinate hypertrophy Chronic sinusitis Sinonasal polyposis Postoperative Diagnosis: same Procedure(s) Performed: outfracture and submucous resection of the inferior turbinates bilateral endoscopic sinus surgery with polypectomy including bilateral maxillary antrostomy with removal of tissue from maxillary sinuses bilateral anterior and posterior ethmoidectomy with frontal sinusotomy and removal of tissue from the sinuses and bilateral sphenoidotomy with removal of tissue from the sphenoid sinuses Anesthesia: MELIZA Surgeon: Kj Patten Estimated Blood Loss (ml): 10 Pathology: other (sinus contents) Condition: stable Disposition: PACU Indications for Procedure: this 63-year-old white male who has a remote history of septoplasty and endoscopic sinus surgery with polypectomy. He had been doing well until more recently with return of nasal airway obstruction congestion and decreased sense of smell and recurrent sinusitis. He has sinonasal polyps on physical exam as well as inferior turbinate hypertrophy and chronic sinusitis also based on computed tomography scan Operative Findings: inferior turbinate hypertrophy with diffuse sinonasal polyps in the middle meatus ,maxillary ethmoid sphenoid and frontal [id number] but smaller than preoperatively due to his preoperative steroids Description of Procedure: The patient was brought into the operative suite and placed in a supine position. The patient underwent induction of general anesthesia with oral endotracheal intubation without difficulty. The patient was prepped and draped in the usual aseptic fashion with the orbits in the operating field for monitoring to the case and the computed tomography scan was on the computer screen for review throughout the case. 1% lidocaine with 1 :100,000 epinephrine was infused submucosally into the lateral nasal wall and anterior tips of the middle turbinates.note that there was missing parts of the middle turbinates bilaterally although the roots of the middle turbinates were still present While this was taking vasoconstrictive effect the inferior turbinates were infractured with Hall elevator and partial submucous resection of the inferior turbinates was performed with a portion of the submucosal soft tissue and the inferior turbinate bone removed with Coblation device. The inferior turbinates were then outfractured with the Hall elevator. Full 0° endoscopic examination is performed bilaterally. Beginning on the left, the middle turbinate was medialized. The maxillary ostium was located with a ballpoint probe and an infundibulotomy was performed followed by uncinectomy. The maxillary antrostomy was enlarged - revisedat the expense of the anterior and posterior fontanelle taking care anteriorly not to injure the lacrimal bone. The maxillary sinus was evaluated with 30 and 70° endoscope .[Abnormal appearing tissue was removed from the maxillary sinus]. Anterior and posterior ethmoidectomy were then performed from anterior to posterior to the level of the skull base. residual anterior posterior ethmoid air cells were opened with polypectomies The roof of the anterior ethmoid air cells were then cleaned from posterior to anterior using up-biting Blakesley forceps. A frontal sinusotomy of the frontal sinus was then performed using breasts forceps and curved suction. The frontal sinus was then explored with 30° endoscope.[Abnormal tissue was removed from the frontal sinus]. A sphenoidotomy performed utilizing straight suction and straight Blakesley forceps. The sphenoid sinus was then explored with 0° endoscope.[Abnormal t issue was removed from the sphenoid sinus]. Attention was then turned to the right where the procedures were followed as they had been on the leftincluding medialization of the middle turbinate infund ibulotomy uncinectomy maxillary antrostomy revision with polypectomy from the maxillary sinus, anterior and posterior ethmoidectomy revision with polypectomy frontal sinusotomy with exploration and removal of tissue from the frontal sinus and sphenoidotomy with expiration and removal of tissue. [Nasopore nasal dressing was placed in the middle meatus bilaterally under direct visualization]. The patient was suctioned in oral gastric fashion and was allowed to emerge from general anesthesia having tolerated procedure well and was extubated in the operating suite and transferred to the postoperative recovery area in satisfactory condition.
[2024-06-07 11:57] VITALS: BP 158/96; PULSE 76
== END 2024-06-07 12:27 | disposition home or self-care (01) ==
LOC: OR 09:07
PROVIDERS: ATTEND Otolaryngology
DX: J32.0 Chronic maxillary sinusitis (principal); J32.1 Chronic frontal sinusitis; J32.2 Chronic ethmoidal sinusitis; J33.8 Other polyp of sinus; J34.3 Hypertrophy of nasal turbinates; J45.20 Mild intermittent asthma, uncomplicated; J34.2 Deviated nasal septum; I10 Essential (primary) hypertension; H91.90 Unspecified hearing loss, unspecified ear; E66.9 Obesity, unspecified; Z68.30 Body mass index [BMI] 30.0-30.9, adult; Z87.891 Personal history of nicotine dependence; Z79.899 Other long term (current) drug therapy; Z88.0 Allergy status to penicillin; Z91.09 Other allergy status, other than to drugs and biological substances
CPT/HCPCS: 88305; 30140; 31267; 31259; 31276; J2250; J0330; J1100; J0690; J2405; J2003; J3490; J2704; J2371; J1596